=== PATIENT | female | born 1995 | race Caucasian/White ===

== ENCOUNTER 2021-12-15 04:56 | Emergency (ER) | payer OTHER, SELFPAY ==
--- NOTE | 2021-12-15 | ECG_ITS ---
Test Reason : CP Blood Pressure : / mmHG Vent. Rate : 084 BPM Atrial Rate : 084 BPM P-R Int : 154 ms QRS Dur : 076 ms QT Int : 378 ms P-R-T Axes : 085 013 030 degrees QTc Int : 446 ms Normal sinus rhythm Low voltage QRS Borderline ECG No previous ECGs available Referred By: Generic ED Physician Electronically Signed By:Torin Garrido
[2021-12-15 04:59] VITALS: BP 125/72; PULSE 76; RESP 16; TEMP 36.7; O2SAT 100; BMI 23.4
[2021-12-15] MEDS: Ondansetron ODT 4 MG TAB.RAPDIS TRANSLINGU (05:17)
[2021-12-15 05:22] LABS: Basophils Percent Auto 0.5 % (0-2); Eosinophils Absolute Auto 0.3 X10*3/uL (0.0-0.4); Eosinophils Percent Auto 4.3 % (0-4); Hematocrit 40.3 % (37.0-47.0); Hemoglobin 13.5 g/dl (12.0-16.0); Imm Gran Abs Auto 0.02 X10*3/uL (0.00-0.03); Imm Gran Pct Auto 0.3 % (0.0-0.4); Lymphocytes Percent Auto 25.4 % (20-40); MANUAL DIFF FLAG NO; Mean Corpuscular HGB Conc 33.5 g/dl (31.0-35.0); Mean Corpuscular Hemoglobin 27.7 pg (27.0-33.0); Mean Corpuscular Volume 82.8 fL (80.0-98.0); Monocytes Absolute Auto 0.6 X10*3/uL (0.1-1.2); Monocytes Percent Auto 7.7 % (2-11); Neutrophils Absolute Auto 4.9 x10*3/uL (2.0-8.3); Neutrophils Percent Auto 61.8 % (45-73); Platelet Count 303 X10*3/uL (160-400); Red Blood Count 4.87 X10*6/uL (4.20-5.50); Red Cell Distribution Width 12.3 % (11.0-16.0)
[2021-12-15 05:39] LABS: Alanine Aminotransferase 15 U/L (0-31); Albumin Level 4.6 g/dL (3.5-5.0); Alkaline Phosphatase 71 U/L (39-117); Anion Gap 11 (12-20); Aspartate Amino Transferase 18 U/L (5-31); Bilirubin Total 0.5 mg/dL (0.0-1.0); Blood Urea Nitrogen 14 mg/dL (9-16); Calcium 9.2 mg/dL (8.4-10.2); Carbon Dioxide 19 mmol/L (22-29); Chloride 113 mmol/L (96-108); Creatinine Clr Calc Pharmacy 67.2; Estimated Glomerular Filt Rate > 60; Glucose Random 106 mg/dL (60-115); Potassium 4.3 mmol/L (3.3-5.1); Sodium 139 mmol/L (135-145); Total Protein 7.2 g/dL (6.5-8.0)
[2021-12-15 05:42] LABS: Troponin-I High Sensitivity < 3.5 ng/L (<3.5-17.0)
[2021-12-15 05:50] LABS: COVID-19 Test Negative (Negative)
[2021-12-15 06:12] VITALS: BP 102/57; PULSE 68; RESP 16; TEMP 36.6; O2SAT 100
--- NOTE | 2021-12-15 06:33 | ED_ITS ---
HPI - Nausea/Vomiting/Diarrhea General Chief complaint: Nausea/Vomiting/Diarrhea Stated complaint: Vomiting Diarrhea Light Headed Time Seen by Provider: 12/15/21 06:12 Source: patient Mode of arrival: ambulatory Limitations: no limitations History of Present Illness HPI Narrative: 26-year-old female who presents emergency department for evaluation of nausea vomiting diarrhea the syncopal episode. The patient states that yesterday at approximately 18:00 hours she developed vomiting and diarrhea. She states that she was having 3 episodes per hour of diarrhea and 2 episodes of vomiting per hour. She denies any blood in the emesis or diarrhea. She states that she is currently vomiting bile. She states that around 04:00 hours she got dizzy and lightheaded and then lost her hearing in her vision, she states she leaned on a wall and lowered herself to the floor. She states that she lost consciousness for approximately 1 minute. The patient is complaining of left lower quadrant abdominal pain as well. She describes this pain is a constant, cramping sensation which is 6/10. She states that she is also experiencing some tingling in her fingers and her toes. she did give herself IM Toradol and took hydralazine at around midnight with no relief of her symptoms. The patient states that she has intracranial hypertension and takes Trokendi ER. She has been on this medication for approximately 6 months and she states that her doctor increase the dose 2 days prior. She denied fever. She did have intermittent shaking chills. She denied rhinorrhea, sore throat, cough, chest pain, shortness of breath, frequency, dysuria, myalgias or arthralgias. MD elicited complaint: nausea, vomiting and diarrhea Pertinent past history: other ( Ulcerative colitis, intracranial hypertension) Onset (ago): day(s) (1) Description of vomiting: bilious Description of diarrhea: watery Associated nausea: Yes Associated abdominal pain: Yes Location of pain: LUQ ( Cramping) Pain consistency: constant Severity: moderate Pain scale (0-10): 6 Quality: cramping Exacerbating factors: eating Relieving factors: none Associated symptoms: nausea/vomiting, syncope, weakness and numbness Treatment prior to arrival: analgesics ( IM Toradol) Related Data Previous Rx's Medication Instructions Recorded morphine 15 mg immediate release 15 mg PO Q4-6H PRN pain #10 tabs 12/15/21 tablet ondansetron 4 mg disintegrating 4 mg PO Q6-8H PRN nausea and 12/15/21 tablet vomiting #14 tabs Allergies Allergy/AdvReac Type Severity Reaction Status Date / Time gluten Allergy Abdominal Verified 12/15/21 04:59 Pain metoclopramide [From Reglan] Allergy Hives Verified 12/15/21 04:59 prochlorperazine Allergy Hives Verified 12/15/21 04:59 [From Compazine] sulfamethoxazole Allergy Hives Verified 12/15/21 04:59 [From Bactrim] sumatriptan Allergy Hives Verified 12/15/21 04:59 trimethoprim [From Bactrim] Allergy Hives Verified 12/15/21 04:59 Review of Systems Review of Systems: Yes all other systems are reviewed and are negative Gastrointestinal: Gastrointestinal: Reports nausea FOR[facility]LY [facility], 1928–1983 Past Medical History FORMERLY [facility], 1928–1983 Narrative: past medical history: Ulcerative colitis, intracranial hypertension. Past surgical history: None. Social history: She denies tobacco use. She occasionally drinks alcohol. She denies drug use. Social History Social History Advance Directives: No Advance Directives Information Provided: No Physical Exam Vital Signs: Vital Signs: Last Vital Signs Temp 97.9 F 12/15/21 06:12 Pulse 72 12/15/21 09:13 Resp 16 12/15/21 09:13 BP 104/64 12/15/21 09:13 Pulse Ox 100 12/15/21 09:13 O2 Del Method 12/15/21 09:13 BMI result Body Mass Index 23.4 Const: General: cooperative and no acute distress Orientation/consciousness: oriented to person and oriented to place Limitations: no limitations HEENT: Head: Yes normal to inspection, Yes normocephalic and Yes atraumatic Ears: external ears normal General nose exam: Normal external nose present Face and sinus: Yes normal facial exam Mouth: Normal oral and palatal mucosa present Throat: Yes posterior oropharynx normal Eyes: General: appearance normal, both eyes and all related structures Pupils: Equal, round and reactive pupils present Neck: Neck: Yes normal visual inspection, Yes no lymphadenopathy, Yes trachea midline and Yes supple Chest: Chest palpation & inspection: normal inspection of the chest and normal palpation of entire chest wall Resp: Effort & Inspection: normal respiratory effort and able to speak in complete sentences Auscultation: clear to auscultation bilaterally Cardio: Rate: regular rate Rhythm: regular rhythm Heart sounds: S1 normal heart sound present, S2 normal heart sound present and no murmurs GI: Inspection: Yes normal to inspection Palpation (GI): Soft to palpation, Tenderness to palpation present (GI) in the LLQ ( Moderate) and no guarding Auscultation: normal bowel sounds : General: Yes no CVA tenderness Back/Spine/Pelvis: Back: no CVA tenderness Skin: General skin exam: no rashes or lesions noted Neuro: General: oriented to person and oriented to place Cranial nerves: Yes CN's II-XII intact bilaterally and Yes Equal, round and reactive pupils present Cognition (Neuro): normal cognition Motor exam (neuro): 5/5 motor strength present throughout Extrem: General: Yes normal to inspection Psych: Appearance: grossly normal Speech and movement: Normal speech and movement present Affect: normal affect Attitude: cooperative Thought process: Normal thought process present Thought content: Normal thought celia nt present Course Course Course Narrative: 26-year-old female who presents emergency department for evaluation of 1 day of nausea, vomiting, abdominal pain and 1 syncopal episode after vomiting. Patient has also had of colitis and intercranial hypertension w and she takesTrokendi and hydralazine for ICH, her medication was recently increased 2 days prior. The patient's vital signs were unremarkable. Patient does have left lower quadrant tenderness. At this time I do not think that her symptoms are related to her ulcerative colitis, ICH or her increase in her Trokendi. Patient most likely has a viral syndrome causing her nausea vomiting and diarrhea. Her syncope was most likely secondary to vasovagal event and dehydration. Patient had a CBC CMP troponin and COVID test. Patient's chloride was slightly elevated at 113 with the low bicarb of 19 which I believe was due to her vomiting in her diarrhea. Troponin was below detectable limits and COVID-19 was negative. Patient was ordered to get normal saline IV x1 L, Toradol 15 mg IV and Zofran 4 mg IV. 2206 : The patient is nausea improved with the above treatment but she continued to have abdominal pain, she was treated with morphine 4 mg IV with complete resolution. The patient's presentation is consistent with acute viral syndrome. she was advised to take Tylenol ibuprofen for pain and for pain not relieved by these medications she was prescribed morphine. She was also given Zofran ODT for her nausea and vomiting. Patient was given a work note discharged home. MDM - Nausea/Vomiting/Diarrhea Lab Data Result diagrams: 12/15/21 05:11 12/15/21 05:11 Labs: Lab Results 12/15/21 12/15/21 12/15/21 Range/Units 05:11 05:11 05:11 WBC 8.0 (4.8-10.8) X10*3/uL RBC 4.87 (4.20-5.50) X10*6/uL Hgb 13.5 (12.0-16.0) g/dl Hct 40.3 (37.0-47.0) % MCV 82.8 (80.0-98.0) fL MCH 27.7 (27.0-33.0) pg MCHC 33.5 (31.0-35.0) g/dl RDW 12.3 (11.0-16.0) % Plt Count 303 (160-400) X10*3/uL MPV 9.0 L (9.4-12.3) fL Immature Gran % (Auto) 0.3 (0.0-0.4) % Neut % (Auto) 61.8 (45-73) % Lymph % (Auto) 25.4 (20-40) % [place] % (Auto) 7.7 (2-11) % Eos % (Auto) 4.3 H (0-4) % Baso % (Auto) 0.5 (0-2) % Lymph # (Auto) 2.0 (1.2-4.9) X10*3/uL [place] # (Auto) 0.6 (0.1-1.2) X10*3/uL Eos # (Auto) 0.3 (0.0-0.4) X10*3/uL Baso # (Auto) 0.0 (0.0-0.2) X10*3/uL Abs Immat Gran (auto) 0.02 (0.00-0.03) X10*3/uL Absolute Neuts (auto) 4.9 (2.0-8.3) x10*3/uL Absolute Nucleated RBC 0.000 (0.0-0.012) X10*3/uL Nucleated RBC % (auto) 0.0 (0.0-0.2) /100WBC Sodium 139 (135-145) mmol/L Potassium 4.3 (3.3-5.1) mmol/L Chloride 113 H (96-108) mmol/L Carbon Dioxide 19 L (22-29) mmol/L Anion Gap 11 L (12-20) BUN 14 (9-16) mg/dL Creatinine 0.91 (0.5-1.4) mg/dL Estim Creat Clear Calc 67.2 Estimated GFR > 60 Random Glucose 106 (60-115) mg/dL Calcium 9.2 (8.4-10.2) mg/dL Total Bilirubin 0.5 (0.0-1.0) mg/dL AST 18 (5-31) U/L ALT 15 (0-31) U/L Alkaline Phosphatase 71 (39-117) U/L Troponin I High Sens < 3.5 (<3.5-17.0) ng/L Total Protein 7.2 (6.5-8.0) g/dL Albumin 4.6 (3.5-5.0) g/dL COVID-19 (ANTHONY) (Negative) COVID-19 Clin Com 12/15/21 Range/Units 05:12 WBC (4.8-10.8) X10*3/uL RBC (4.20-5.50) X10*6/uL Hgb (12.0-16.0) g/dl Hct (37.0-47.0) % MCV (80.0-98.0) fL MCH (27.0-33.0) pg MCHC (31.0-35.0) g/dl RDW (11.0-16.0) % Plt Count (160-400) X10*3/uL MPV (9.4-12.3) fL Immature Gran % (Auto) (0.0-0.4) % Neut % (Auto) (45-73) % Lymph % (Auto) (20-40) % [place] % (Auto) (2-11) % Eos % (Auto) (0-4) % Baso % (Auto) (0-2) % Lymph # (Auto) (1.2-4.9) X10*3/uL [place] # (Auto) (0.1-1.2) X10*3/uL Eos # (Auto) (0.0-0.4) X10*3/uL Baso # (Auto) (0.0-0.2) X10*3/uL Abs Immat Gran (auto) (0.00-0.03) X10*3/uL Absolute Neuts (auto) (2.0-8.3) x10*3/uL Absolute Nucleated RBC (0.0-0.012) X10*3/uL Nucleated RBC % (auto) (0.0-0.2) /100WBC Sodium (135-145) mmol/L Potassium (3.3-5.1) mmol/L Chloride (96-108) mmol/L Carbon Dioxide (22-29) mmol/L Anion Gap (12-20) BUN (9-16) mg/dL Creatinine (0.5-1.4) mg/dL Estim Creat Clear Calc Estimated GFR Random Glucose (60-115) mg/dL Calcium (8.4-10.2) mg/dL Total Bilirubin (0.0-1.0) mg/dL AST (5-31) U/L ALT (0-31) U/L Alkaline Phosphatase (39-117) U/L Troponin I High Sens (<3.5-17.0) ng/L Total Protein (6.5-8.0) g/dL Albumin (3.5-5.0) g/dL COVID-19 (ANTHONY) Negative (Negative) COVID-19 Clin Com See Note Discharge Plan Discharge Clinical Impression: Acute viral syndrome Vomiting Qualifiers: Vomiting type: bilious vomiting Nausea presence: with nausea Qualified Code(s): R11.14 - Bilious vomiting Diarrhea Qualifiers: Diarrhea type: unspecified type Qualified Code(s): R19.7 - Diarrhea, unspecified Patient Disposition: Home, Self-Care Instructions: Viral Syndrome (ED) Additional Instructions: Your laboratory evaluation was unremarkable. Your COVID-19 test was negative. Your presentation is consistent with a viral syndrome causing her abdominal pain, nausea, vomiting and diarrhea. Stay on a brat diet for the next 24 hours (bananas, rice, applesauce, tea and toast) Take ibuprofen 200 mg pills, 3 pills every 6 hours as needed for pain. Take Tylenol (acetaminophen) 2 pills every 4-6 hours as needed for pain. For pain not relieved by ibuprofen or Tylenol take morphine 15 mg pills, 1 pill every 4 hours as needed for pain. This medication will make you sleepy, do not drive or work while taking this medication. Morphine is a narcotic medication and can be addicting. If you are concerned about addiction you can ask the pharmacist for less pills or do not get this prescription filled. Take Zofran ODT 4 mg pills, 1 pill dissolved in your mouth every 8 hours as needed for nausea and vomiting. Follow-up with your doctor in 2 days. Please return to the emergency department if your symptoms get worse or if you develop any symptoms that are concerning to you. Please see the work note Prescriptions: New morphine 15 mg tablet 15 mg PO Q4-6H PRN (Reason: pain) Qty: 10 0RF Rx Instructions: The patient may ask for partial fill; Partial Fill upon patient request. ondansetron 4 mg tablet,disintegrating 4 mg PO Q6-8H PRN (Reason: nausea and vomiting) Qty: 14 0RF Stand Alone Forms: Work/School Release
[2021-12-15] MEDS: ondansetron HCL 4 MG/2 ML VIAL IVPUSH ×2 (06:48→09:14)
[2021-12-15] MEDS: Ketorolac Tromethamine 15 MG/ML VIAL IVPUSH (06:48)
[2021-12-15] MEDS: 0.9 % Sodium Chloride 1,000 ML 999 ML IV (06:49)
[2021-12-15 09:13] VITALS: BP 104/64; PULSE 72; RESP 16; O2SAT 100
[2021-12-15] MEDS: Morphine Sulfate 4 MG/ML CARTRIDGE IVPUSH (09:14)
--- NOTE | 2021-12-15 09:14 | PC.NURSE ---
Pt medicated as charted for persistent 7/10 llq abd pain and nausea. VSS
== END 2021-12-15 10:38 | disposition home or self-care (01) ==
PROVIDERS: Emergency Provider Emergency Medicine Emergency Medical Services; PCP Internal Medicine
DX: B34.9 Viral infection, unspecified (principal); R11.2 Nausea with vomiting, unspecified; R19.7 Diarrhea, unspecified; R11.14 Bilious vomiting; Z20.822 Contact with and (suspected) exposure to COVID-19; Z79.899 Other long term (current) drug therapy
CPT/HCPCS: 36415; 80053; 84484; 85025; 87635; 93005; 96361; 96374; 96375; 96376; 99284; J1885; J2270; J2405

== ENCOUNTER 2021-12-17 10:18 | Emergency (ER) | payer OTHER, SELFPAY ==
[2021-12-17 10:44] VITALS: BP 136/86; PULSE 91; RESP 16; TEMP 36.5; O2SAT 99; BMI 23.4
[2021-12-17 11:37] LABS: Hematocrit 38.2 % (37.0-47.0); Hemoglobin 12.7 g/dl (12.0-16.0); Mean Corpuscular HGB Conc 33.2 g/dl (31.0-35.0); Mean Corpuscular Hemoglobin 27.4 pg (27.0-33.0); Mean Corpuscular Volume 82.5 fL (80.0-98.0); Mean Platelet Volume 8.7 fL (9.4-12.3); Platelet Count 249 X10*3/uL (160-400); Red Blood Count 4.63 X10*6/uL (4.20-5.50); White Blood Count 9.5 X10*3/uL (4.8-10.8)
[2021-12-17 11:51] LABS: Anion Gap 10 (12-20); Blood Urea Nitrogen 8 mg/dL (9-16); Calcium 8.7 mg/dL (8.4-10.2); Carbon Dioxide 21 mmol/L (22-29); Chloride 112 mmol/L (96-108); Creatinine Clr Calc Pharmacy 68.8; Estimated Glomerular Filt Rate > 60; Glucose Random 112 mg/dL (60-115); Potassium 4.3 mmol/L (3.3-5.1); Sodium 139 mmol/L (135-145)
[2021-12-17 11:53] LABS: UPreg QC Valid YES; Urine Pregnancy NEGATIVE (NEGATIVE)
[2021-12-17 14:02] LABS: UPreg QC Valid YES; Urine Pregnancy NEGATIVE (NEGATIVE)
== END 2021-12-17 10:46 | disposition left against medical advice (07) ==
LOC: HO.ED 12-19 12:37
PROVIDERS: Emergency Provider Emergency Medicine; PCP Internal Medicine
DX: G43.909 Migraine, unspecified, not intractable, without status migrainosus (principal); G93.2 Benign intracranial hypertension
CPT/HCPCS: 36415; 80048; 81025; 85027; 93005; 99282

== ENCOUNTER 2022-01-22 05:18 | Emergency (ER) | payer OTHER, SELFPAY ==
[2022-01-22 05:33] VITALS: BP 139/80; PULSE 103; RESP 20; TEMP 37.3; O2SAT 100; BMI 25.0
[2022-01-22 06:00] VITALS: BP 108/67; PULSE 91; RESP 12; O2SAT 98
[2022-01-22 06:27] LABS: MANUAL DIFF FLAG NO
[2022-01-22] MEDS: diphenhydrAMINE HCL 50 MG/ML VIAL 25 MG IVPUSH (06:29)
[2022-01-22] MEDS: ondansetron HCL 4 MG/2 ML VIAL IVPUSH (06:29)
[2022-01-22] MEDS: Lactated Ringers 1,000 ML 999 ML IV (06:29)
[2022-01-22 06:31] LABS: Basophils Absolute Auto 0.1 X10*3/uL (0.0-0.2); Basophils Percent Auto 0.9 % (0-2); Eosinophils Absolute Auto 0.2 X10*3/uL (0.0-0.4); Eosinophils Percent Auto 4.1 % (0-4); Hematocrit 37.7 % (37.0-47.0); Hemoglobin 12.8 g/dl (12.0-16.0); Imm Gran Abs Auto 0.01 X10*3/uL (0.00-0.03); Imm Gran Pct Auto 0.2 % (0.0-0.4); Lymphocytes Absolute Auto 1.5 X10*3/uL (1.2-4.9); Lymphocytes Percent Auto 25.3 % (20-40); Mean Corpuscular Hemoglobin 27.8 pg (27.0-33.0); Mean Platelet Volume 9.1 fL (9.4-12.3); Monocytes Absolute Auto 0.4 X10*3/uL (0.1-1.2); Monocytes Percent Auto 6.8 % (2-11); Neutrophils Absolute Auto 3.7 x10*3/uL (2.0-8.3); Neutrophils Percent Auto 62.7 % (45-73); Platelet Count 249 X10*3/uL (160-400); Red Cell Distribution Width 12.4 % (11.0-16.0); White Blood Count 5.9 X10*3/uL (4.8-10.8)
--- NOTE | 2022-01-22 06:41 | ED.GENADULT ---
HPI - General Adult General Chief complaint: General Medical Stated complaint: vomiting, fainting Time Seen by Provider: 01/22/22 06:00 Source: patient Mode of arrival: ambulatory Limitations: no limitations History of Present Illness HPI narrative: Patient's history of ulcerative colitis well controlled did have any flare-up for last few years not any immunomodulators or treatment used to get steroid infusions few years ago. Patient was seen here 01/03 for nausea vomiting and few bowel movements patient has gastroparesis and never get severe diarrhea with ulcerative colitis flare-up. Since yesterday patient vomiting had about 10 nonbilious vomiting along with abdominal cramping no diarrhea patient was seen by her car body designer last month and was given 10 days of prednisone treatment. Patient denies any headache no vision problems no fever or chills denies any anxiety or stress no substance abuse Related Data Previous Rx's Medication Instructions Recorded morphine 15 mg immediate release 15 mg PO Q4-6H PRN pain #10 tabs 12/15/21 tablet ondansetron 4 mg disintegrating 4 mg PO Q6-8H PRN nausea and 12/15/21 tablet vomiting #14 tabs Allergies Allergy/AdvReac Type Severity Reaction Status Date / Time gluten Allergy Abdominal Verified 12/17/21 10:48 Pain metoclopramide [From Reglan] Allergy Hives Verified 12/17/21 10:48 prochlorperazine Allergy Hives Verified 12/17/21 10:48 [From Compazine] sulfamethoxazole Allergy Hives Verified 12/17/21 10:48 [From Bactrim] sumatriptan Allergy Hives Verified 12/17/21 10:48 trimethoprim [From Bactrim] Allergy Hives Verified 12/17/21 10:48 Review of Systems Review of Systems: Yes all other systems are reviewed and are negative [facility] Social History Social History Advance Directives: No Physical Exam ED Vital Signs: Vital Signs - 24 hr 01/22/22 05:33 01/22/22 06:00 Temperature 99.1 F Pulse Rate 103 H 91 Respiratory Rate 20 12 Blood Pressure 139/80 108/67 Pulse Oximetry 100 98 Oxygen Delivery Method Room Air Room Air BMI result Body Mass Index 25.0 Appearance: Alert. Oriented X3. No acute distress. Eyes: No pallor ENT: Pharynx normal. Oral Mucosa moist Neck: Normal inspection. Neck supple. CVS: Normal heart rate and rhythm. Pulses normal. Respiratory: No respiratory distress. Equal air entry bilateral, no wheezing/rales/rhonchi Abdomen: Soft and nontender. Bowel sounds are present, no mass palpable, no CVA tenderness Skin: Skin warm and dry. Normal skin color. Normal skin turgor. Extremities: No lower extremity edema. No calf tenderness Neuro: Oriented X 3. No motor deficit. Medical Decision Making MDM Narrative Medical decision making narrative: Patient with stable labs negative CRP unlikely anything significant except likely cyclic vomiting/gastroparesis patient feeling much better now taking p.o. fluid to discharge patient home Lab Data Lab results reviewed: Yes I reviewed the patient's lab results. Result diagrams: 01/22/22 06:20 01/22/22 06:20 Labs: Lab Results 01/22/22 01/22/22 01/22/22 Range/Units 06:14 06:20 06:20 WBC 5.9 (4.8-10.8) X10*3/uL RBC 4.60 (4.20-5.50) X10*6/uL Hgb 12.8 (12.0-16.0) g/dl Hct 37.7 (37.0-47.0) % MCV 82.0 (80.0-98.0) fL MCH 27.8 (27.0-33.0) pg MCHC 34.0 (31.0-35.0) g/dl RDW 12.4 (11.0-16.0) % Plt Count 249 (160-400) X10*3/uL MPV 9.1 L (9.4-12.3) fL Immature Gran % (Auto) 0.2 (0.0-0.4) % Neut % (Auto) 62.7 (45-73) % Lymph % (Auto) 25.3 (20-40) % [place] % (Auto) 6.8 (2-11) % Eos % (Auto) 4.1 H (0-4) % Baso % (Auto) 0.9 (0-2) % Lymph # (Auto) 1.5 (1.2-4.9) X10*3/uL [place] # (Auto) 0.4 (0.1-1.2) X10*3/uL Eos # (Auto) 0.2 (0.0-0.4) X10*3/uL Baso # (Auto) 0.1 (0.0-0.2) X10*3/uL Abs Immat Gran (auto) 0.01 (0.00-0.03) X10*3/uL Absolute Neuts (auto) 3.7 (2.0-8.3) x10*3/uL Absolute Nucleated RBC 0.000 (0.0-0.012) X10*3/uL Nucleated RBC % (auto) 0.0 (0.0-0.2) /100WBC Sodium 139 (135-145) mmol/L Potassium 3.9 (3.3-5.1) mmol/L Chloride 110 H (96-108) mmol/L Carbon Dioxide 21 L (22-29) mmol/L Anion Gap 12 (12-20) BUN 19 H D (9-16) mg/dL Creatinine 0.83 (0.5-1.4) mg/dL Estim Creat Clear Calc 81.9 Estimated GFR > 60 Random Glucose 116 H (60-115) mg/dL Calcium 8.8 (8.4-10.2) mg/dL Magnesium 1.9 (1.6-2.6) mg/dL Total Bilirubin 0.4 (0.0-1.0) mg/dL Direct Bilirubin < 0.2 (0.0-0.5) mg/dL AST 16 (5-31) U/L ALT 15 (0-31) U/L Alkaline Phosphatase 64 (39-117) U/L C-Reactive Protein 0.16 (< or = 0.50) mg/dL Total Protein 6.8 (6.5-8.0) g/dL Albumin 4.3 (3.5-5.0) g/dL Lipase 38 (8-78) U/L Beta HCG, Quant mIU/mL COVID-19 (ANTHONY) Negative (Negative) COVID-19 Clin Com See Note 01/22/22 Range/Units 06:20 WBC (4.8-10.8) X10*3/uL RBC (4.20-5.50) X10*6/uL Hgb (12.0-16.0) g/dl Hct (37.0-47.0) % MCV (80.0-98.0) fL MCH (27.0-33.0) pg MCHC (31.0-35.0) g/dl RDW (11.0-16.0) % Plt Count (160-400) X10*3/uL MPV (9.4-12.3) fL Immature Gran % (Auto) (0.0-0.4) % Neut % (Auto) (45-73) % Lymph % (Auto) (20-40) % [place] % (Auto) (2-11) % Eos % (Auto) (0-4) % Baso % (Auto) (0-2) % Lymph # (Auto) (1.2-4.9) X10*3/uL [place] # (Auto) (0.1-1.2) X10*3/uL Eos # (Auto) (0.0-0.4) X10*3/uL Baso # (Auto) (0.0-0.2) X10*3/uL Abs Immat Gran (auto) (0.00-0.03) X10*3/uL Absolute Neuts (auto) (2.0-8.3) x10*3/uL Absolute Nucleated RBC (0.0-0.012) X10*3/uL Nucleated RBC % (auto) (0.0-0.2) /100WBC Sodium (135-145) mmol/L Potassium (3.3-5.1) mmol/L Chloride (96-108) mmol/L Carbon Dioxide (22-29) mmol/L Anion Gap (12-20) BUN (9-16) mg/dL Creatinine (0.5-1.4) mg/dL Estim Creat Clear Calc Estimated GFR Random Glucose (60-115) mg/dL Calcium (8.4-10.2) mg/dL Magnesium (1.6-2.6) mg/dL Total Bilirubin (0.0-1.0) mg/dL Direct Bilirubin (0.0-0.5) mg/dL AST (5-31) U/L ALT (0-31) U/L Alkaline Phosphatase (39-117) U/L C-Reactive Protein (< or = 0.50) mg/dL Total Protein (6.5-8.0) g/dL Albumin (3.5-5.0) g/dL Lipase (8-78) U/L Beta HCG, Quant < 2 mIU/mL COVID-19 (ANTHONY) (Negative) COVID-19 Clin Com Discharge Plan Discharge Clinical Impression: Vomiting Patient Disposition: Home, Self-Care Instructions: Acute Nausea and Vomiting (ED) Additional Instructions: Drink plenty of fluids Take Zofran for nausea/vomiting as prescribed Follow-up with PCP Prescriptions: No Action morphine 15 mg tablet 15 mg PO Q4-6H PRN (Reason: pain) Qty: 10 0RF Rx Instructions: The patient may ask for partial fill; Partial Fill upon patient request. ondansetron 4 mg tablet,disintegrating 4 mg PO Q6-8H PRN (Reason: nausea and vomiting) Qty: 14 0RF
[2022-01-22 06:49] LABS: COVID-19 Test Negative (Negative); IDNOW Serial# 9DB6401D
[2022-01-22 06:50] LABS: Alanine Aminotransferase 15 U/L (0-31); Albumin Level 4.3 g/dL (3.5-5.0); Alkaline Phosphatase 64 U/L (39-117); Anion Gap 12 (12-20); Aspartate Amino Transferase 16 U/L (5-31); Bilirubin Direct < 0.2 mg/dL (0.0-0.5); Bilirubin Total 0.4 mg/dL (0.0-1.0); Blood Urea Nitrogen 19 mg/dL (9-16); Calcium 8.8 mg/dL (8.4-10.2); Carbon Dioxide 21 mmol/L (22-29); Chloride 110 mmol/L (96-108); Creatinine Clr Calc Pharmacy 81.9; Estimated Glomerular Filt Rate > 60; Glucose Random 116 mg/dL (60-115); Lipase 38 U/L (8-78); Magnesium 1.9 mg/dL (1.6-2.6); Potassium 3.9 mmol/L (3.3-5.1); Sodium 139 mmol/L (135-145); Total Protein 6.8 g/dL (6.5-8.0)
[2022-01-22 06:58] LABS: HCG Quantitative < 2 mIU/mL
[2022-01-22 07:08] LABS: C Reactive Protein 0.16 mg/dL (< or = 0.50)
[2022-01-22] MEDS: dexAMETHasone sod phosphate 10 MG/ML VIAL IVPUSH (07:09)
--- NOTE | 2022-01-22 07:16 | ECG_ITS ---
Test Reason : DIZZINESS Blood Pressure : / mmHG Vent. Rate : 090 BPM Atrial Rate : 090 BPM P-R Int : 172 ms QRS Dur : 076 ms QT Int : 358 ms P-R-T Axes : 075 002 029 degrees QTc Int : 437 ms Normal sinus rhythm Low voltage QRS Borderline ECG When compared with ECG of 15-DEC-2021 05:06, No significant change was found Referred By: Dandre Whalen Electronically Signed By:NAY BLAIR
== END 2022-01-22 08:33 | disposition home or self-care (01) ==
PROVIDERS: Emergency Medicine; Emergency Provider Internal Medicine; PCP Internal Medicine
DX: R11.10 Vomiting, unspecified (principal); Z20.822 Contact with and (suspected) exposure to COVID-19
CPT/HCPCS: 36415; 80048; 80076; 83690; 83735; 84702; 85025; 86140; 87635; 93005; 96374; 96375; 99284; 99285; J1100; J1200; J2405

== ENCOUNTER 2022-08-03 17:54 | Emergency (ER) | payer OTHER, SELFPAY | END 2022-08-03 19:17 | disposition left against medical advice (07) | PROVIDERS: Emergency Provider Emergency Medicine; PCP Physician Assistant | DX: L50.0 Allergic urticaria (principal) ==

== ENCOUNTER 2022-08-17 22:49 | Emergency (ER) | payer OTHER, SELFPAY ==
[2022-08-17 23:07] VITALS: BP 132/92; PULSE 110; RESP 23; TEMP 36.7; O2SAT 100; BMI 26.4
--- NOTE | 2022-08-17 23:11 | ED.ALLEREA ---
HPI - Allergic Reaction General Chief complaint: Allergic Reaction Stated complaint: allergic reaction Time Seen by Provider: 08/17/22 23:00 Source: patient Mode of arrival: ambulatory History of Present Illness HPI narrative: 27-year-old female with acute onset of 2nd allergic reaction, initial 1 she was seen at [facility] for, unknown inciting event. Patient states that she has underlying ulcerative colitis, gastroparesis is currently being seen and worked up in [place]. She was provided with an EpiPen by [facility], but did not use a prior to arrival. She states that her throat feels itchy. Related Data Previous Rx's Medication Instructions Recorded morphine 15 mg immediate release 15 mg PO Q4-6H PRN pain #10 tabs 12/15/21 tablet ondansetron 4 mg disintegrating 4 mg PO Q6-8H PRN nausea and 12/15/21 tablet vomiting #14 tabs Allergies Allergy/AdvReac Type Severity Reaction Status Date / Time gluten Allergy Abdominal Verified 12/17/21 10:48 Pain metoclopramide [From Reglan] Allergy Hives Verified 12/17/21 10:48 prochlorperazine Allergy Hives Verified 12/17/21 10:48 [From Compazine] sulfamethoxazole Allergy Hives Verified 12/17/21 10:48 [From Bactrim] sumatriptan Allergy Hives Verified 12/17/21 10:48 trimethoprim [From Bactrim] Allergy Hives Verified 12/17/21 10:48 Review of Systems Review of Systems: Pertinent positives and negatives as stated in HPI PMFSH Past Medical History Source: nursing notes reviewed Social History Social History Alcohol intake: never Smoked in Last 30 Days: No Use of substances other than those prescribed or required for medical reasons: No Advance Directives: No Physical Exam ED Vital Signs: Vital Signs - 24 hr 08/17/22 23:07 08/17/22 23:22 Temperature 98.0 F Pulse Rate 110 H 96 Respiratory Rate 23 H 16 Blood Pressure 132/92 H 138/82 Pulse Oximetry 100 100 Oxygen Delivery Method Room Air Room Air BMI result Body Mass Index 26.4 VITAL SIGNS: Reviewed. GENERAL: Well developed, well nourished, in no acute distress. HEAD: Normocephalic/atraumatic EYES: PERRLA, EOMI EARS: Ext canals without abnormality, TMs non-bulging and non-erythematous NOSE: Nares patent bilateral OROPHARYNX: no oral lesions noted, posterior pharynx clear, I appreciate no lip/tongue swelling although there is noted ?some blotchiness to patient's face with some mild swelling around the eyes NECK: Supple, no adenopathy LUNGS: Normal breath sounds, no wheeze/rhonchi/rales/stridor. No adventitious sounds or accessory muscle use. SpO2<100> CARDIOVASCULAR: Regular rate and rhythm without noted murmurs ABDOMEN: Soft, non-tender, non-distended with bowel sounds. MUSCULOSKELETAL: No tenderness, deformities, or effusions noted on gross inspection. EXTREMITIES: No cyanosis, clubbing or edema. SKIN: Inspection of the skin reveals no rashes NEUROLOGIC: Alert and oriented x 4. Strength and sensation to light touch were grossly intact x 4. Medications Administered Discontinued Medications Generic Name Dose Route Start Last Admin Trade Name Freq PRN Reason Stop Dose Admin Diphenhydramine HCl 25 mg 08/17/22 23:00 08/17/22 23:18 Diphenhydramine Hcl 50 Mg/Ml Vial IVPUSH 08/17/22 23:01 25 mg ONCE ONE Administration Famotidine 20 mg 08/17/22 23:00 08/17/22 23:18 Famotidine/Pf 20 Mg/2 Ml Vial IVPUSH 08/17/22 23:01 20 mg ONCE ONE Administration Methylprednisolone Sodium Succinate 125 mg 08/17/22 23:00 08/17/22 23:18 Methylprednisolone Sod Succ 125 Mg/2 Ml Vial IVPUSH 08/17/22 23:01 125 mg ONCE ONE Administration Medical Decision Making Medical Decision Making MDM Narrative: 27-year-old female with idiopathic allergic reaction, mild face swelling but otherwise no posterior pharynx/tongue/lip swelling, no stridor or wheeze noted. Patient will receive Benadryl/Pepcid/steroids at this time and will continue to monitor and give EpiPen as indicated. On re-evaluation patient has responded well, there is no evidence of facial/lip/tongue swelling and still no evidence of stridor or respiratory distress. Patient is otherwise stable for discharge to home, no EpiPen used, no EpiPen used prior to arrival and patient was instructed to use her EpiPen next time immediately and go to the ER for observation. Differential Diagnosis Please see the discussion above External Record Review External record reviewed: Prior outpatient labs Critical Care Time Critical Care Time Critical Care Time: Yes Total Critical Care Time: 30 Attestation: I personally attest to this time spent taking care of the patient. Discharge Plan Discharge Clinical Impression: Allergic reaction, Angioedema Patient Disposition: Home, Self-Care Instructions: Allergy Testing (ED), General Allergic Reaction (ED), Angioedema (ED) Additional Instructions: 1. Resume all home medications as prescribed. 2. Follow-up with all of your scheduled appointments for further testing. Return to the ER for any worsening symptoms or new onset of symptoms. Prescriptions: No Action morphine 15 mg tablet 15 mg PO Q4-6H PRN (Reason: pain) Qty: 10 0RF Rx Instructions: The patient may ask for partial fill; Partial Fill upon patient request. ondansetron 4 mg tablet,disintegrating 4 mg PO Q6-8H PRN (Reason: nausea and vomiting) Qty: 14 0RF Referrals: Gunjan Marti PA-C [Primary Care Provider] -
[2022-08-17] MEDS: Famotidine/PF 20 MG/2 ML VIAL IVPUSH (23:18)
[2022-08-17] MEDS: methylPREDNISolone Sod Succ 125 MG/2 ML VIAL IVPUSH (23:18)
[2022-08-17] MEDS: diphenhydrAMINE HCL 50 MG/ML VIAL 25 MG IVPUSH (23:18)
[2022-08-17 23:22] VITALS: BP 138/82; PULSE 96; RESP 16; O2SAT 100
--- NOTE | 2022-08-17 23:28 | PC.NURSE ---
pt came in c/o chest pain and itchiness, observed hives to face and neck and facial swelling, pt came in w/persistent cough aox4
--- NOTE | 2022-08-17 23:46 | PC.NURSE ---
after administration of benadryl, famatodine, and solumedrol, pt has improved- facial swelling has resolved and redness to face and neck has resolved
[2022-08-18 01:26] VITALS: BP 116/63; PULSE 90; RESP 20; TEMP 37; O2SAT 99
--- NOTE | 2022-08-18 01:29 | PC.NURSE ---
Discharge instructions given/explained, pt ambulates safely/independently, no respiratory distress, pt is able to speak in full sentences, no sob, all of pt's questions answered, IV cath intact upon removal
== END 2022-08-18 01:29 | disposition home or self-care (01) ==
PROVIDERS: Emergency Provider Student in an Organized Health Care Education/Training Program; PCP Physician Assistant
DX: L50.0 Allergic urticaria (principal); Z79.899 Other long term (current) drug therapy
CPT/HCPCS: 96374; 96375; 99284; J1200; J2930